=== PATIENT | female | born 1935 | race Caucasian/White ===

== ENCOUNTER 2017-01-07 21:39 | Inpatient (IN) | payer MEDICARE, BC ==
--- NOTE | ~2017-01-07 | HP ---
History And Physical [place] [address] [facility] [place]. [address] NAME: GUANAKITO HAIRSTON : 35 STATUS : ADM IN PAT#: [id number] AGE: 81 ADM/REG DATE : 01/08/17 MR#: [id number] REPORT SERV DATE: 01/08/17 DICTATED BY: CLIVE GUZMAN DATE: 01/08/17 REPORT STATUS : Draft TRANSCRIBED BY: MODL DATE: 01/08/17 DATE OF ADMISSION: 01/08/2017 CARDIOLOGY ADMISSION HISTORY AND PHYSICAL IDENTIFYING DATA: The patient is an 81-year-old woman with no previous cardiovascular history, but with advanced Alzheimer's type dementia. CHIEF COMPLAINT: The patient is brought to [facility] emergency room by her after several hours of apparent substernal chest pain. HISTORY OF PRESENT ILLNESS: Ms. Hairston is a pleasant 81-year-old woman with no previous cardiovascular history. She is a patient of Dr. Clive Joshi. The patient has an advanced Alzheimer's type dementia. The patient's reports that at baseline, the patient is able to eat by herself, but needs assistance with all of her other activities of daily living. She will speak occasionally, but on my interview, the patient is essentially nonverbal. The patient apparently was in her usual state of health until approximately 05:00 p.m. yesterday, 01/07/2017. The patient was preparing to eat dinner, and complained of a substernal chest pain, fell grabbing her chest. The patient's initially felt that this might be indigestion, but realized that the patient did not eat any food. The pain apparently abated transiently, but the patient continued to complain of waxing and waning pain over the next several hours. The patient's finally decided to bring the patient to the emergency room yesterday evening. The patient has no previous cardiovascular history. Her 12-lead EKG demonstrated what appeared to be involving anterolateral myocardial infarction. After discussing the case with Dr. Joshi, the patient has had a previous EKG showing Q-waves in leads V2 through V3 suggestive of a previous anterior KS. These changes have been present going back since before the year 2015. At this time, the patient appears to be comfortable, and is not complaining of any chest pain. She appears mildly tachypneic, but in no acute distress. Again, the patient is nonverbal and unable to describe whether she is experiencing dyspnea or chest discomfort. PAST MEDICAL HISTORY: 1. History of previous breast cancer, status post x-ray therapy and surgical cure. 2. Chronic cellulitis of the chest. 3. Advanced Alzheimer's type dementia. 4. Squamous cell cancer of the face. PAST SURGICAL HISTORY: The patient has had a total abdominal hysterectomy and bilateral salpingo-oophorectomy in the distant past. She has had a modified radical mastectomy. She has had excision of a squamous cell cancer. Surgical history is otherwise noncontributory. FAMILY HISTORY: Noncontributory. History And Physical [address] [address] NAME: GUANAKITO HAIRSTON : 35 STATUS : ADM IN [facility]#: [id number] AGE: 81 ADM/REG DATE : 01/08/17 MR#: [id number] REPORT SERV DATE: 01/08/17 DICTATED BY: CLIVE GUZMAN DATE: 01/08/17 REPORT STATUS : Draft TRANSCRIBED BY: ZINA DATE: 01/08/17 SOCIAL HISTORY: The patient has no significant history of tobacco, alcohol, or drug use. She is . She lives at home with her who is her primary advertising sales representative. ALLERGIES: THE PATIENT APPARENTLY HAS HAD A PREVIOUS ADVERSE REACTION TO LIDOCAINE WITH EPINEPHRINE AT THE DENTIST OFFICE. THE PATIENT'S REPORTS THAT THIS REACTION WAS SIGNIFICANT ENOUGH TO CAUSE GREAT CONCERN IN THAT SHE THEREFORE HAS NOT USED ANY FURTHER LIDOCAINE. THE PATIENT'S DENIES ANY OTHER KNOWN MEDICATION ALLERGIES. HOME MEDICATIONS: 1. Maxitrol ophthalmological ointment, apply quarter-inch ribbon to affected eyes as needed. 2. Lisinopril 20 mg p.o. daily. 3. Toprol-XL 25 mg p.o. twice daily. 4. Penicillin VK 500 mg p.o. q.p.m. with meals. 5. MiraLAX powder 17 g p.o. daily. REVIEW OF SYSTEMS: The patient is unable to provide a meaningful review of systems. PHYSICAL EXAMINATION: VITAL SIGNS: Temperature is 97.4 degrees Fahrenheit, blood pressure is 150/87 mmHg, heart rate is currently 110 beats per minute and regular, respirations 16, oxygen saturation is 95% on a 2 L nasal cannula. CONSTITUTIONAL: The patient is an elderly white woman, who will attempt to follow commands, but is otherwise essentially unresponsive and nonverbal. The patient is mildly tachypneic, but otherwise in no acute distress. EYES: PERRL, EOMI, clear conjunctiva. HEAD/MNT: NCAT with moist mucous membranes and grossly normal hard and soft palate. NECK: Supple with no obvious thyromegaly or lymphadenopathy CARDIOVASCULAR: There is a regular rhythm with a normal S1 and a paradoxically split second heart sound. The jugular venous pressure appears grossly normal at this time. No significant murmurs, rubs, or gallops are noted. PULMONARY: The pulmonary exam is quite limited due to lack of patient effort and patient positioning. Decreased breath sounds are noted in the lung bases bilaterally. There are no overt rales or wheezing noted ABDOMINAL: Soft, nontender, nondistended with no gross hepatosplenomegaly noted. EXTREMITIES: There is 1+ edema below the knees bilaterally. No clubbing or cyanosis is noted. MUSCULOSKELETAL: Grossly normal strength and range of motion in all extremities INTEGUMENTARY: Skin appears intact with no bruises, wounds or active lesions noted NEURO/PSYC: Alert and oriented x3, with no dysarthria, facial droop or lateralizing weakness noted. 12-LEAD EKG: The 12-lead EKG shows sinus rhythm with left axis deviation and Q-waves in leads V1, V2, V3, and poor anterior R-wave progression. There is approximately [address]- segment depression noted in leads 1 and aVL. The tracing is of relatively poor quality, but there also appeared to be Q-waves in leads 2 and aVF. The findings are consistent with History And Physical [address] [place]. [address] NAME: GUANAKITO HAIRSTON : 35 STATUS : ADM IN PAT#: [id number] AGE: 81 ADM/REG DATE : 01/08/17 MR#: [id number] REPORT SERV DATE: 01/08/17 DICTATED BY: CLIVE GUZMAN DATE: 01/08/17 REPORT STATUS : Draft TRANSCRIBED BY: MODL DATE: 01/08/17 anterolateral and inferior myocardial infarction of indeterminate age, most likely involving the LAD. CT SCAN OF THE THORAX: A CT scan of the thorax and abdomen was performed in the emergency room. This is significant for a large hiatal hernia with presence of most of the gastric contents in the left hemothorax. The patient also has eventration of the right hemidiaphragm with the dome of the liver in the right hemithorax. Cardiomegaly is noted. There is no other significant pulmonary disease reported. LABORATORY DATA: [place] [address], hemoglobin 14.1, hematocrit 41, platelets 228. INR is 1.2. PTT is 25. Electrolytes show a sodium of 140, potassium 4.1, chloride is 105, CO2 27, BUN 18, creatinine is 1.07, glucose is 164, magnesium 2.5, total protein 8.6, albumin is 3.4. The patient's initial troponin I is 3.47. ASSESSMENT AND PLAN: 1. Acute myocardial infarction: After discussing the case with Dr. Joshi, it is clear that the patient has had changes suggestive of a previous anterolateral myocardial infarction. As such, this most likely represents a [id number]-GY-[id number] elevation myocardial infarction. However, the patient has not had a previous cardiovascular workup. Given the patient's advanced Alzheimer's type dementia, I have recommended medical management at this time. The patient would not be a candidate for cardiac surgery, though PCI may be possible. However, again given the chronicity of the patient's ECG changes as well as her advanced dementia and the difficulty that would be involved in controlling the patient on the catheterization table as well as her previous serious adverse reactions to lidocaine with epinephrine, I feel the risks of an invasive workup would exceed the potential benefits. The patient will be treated with medical therapy. Her Toprol-XL dose will be increased to 50 mg twice daily if tolerated. The patient will be loaded with Plavix 300 mg p.o. x1, and then continue on 75 mg daily. She will continue aspirin 81 mg daily. We will start atorvastatin 40 mg p.o. at bedtime. A transthoracic echocardiogram will be obtained to evaluate the patient's left ventricular function and exclude the possibility of significant valvular heart disease. We will cycle cardiac biomarkers to determine the size of the acute infarction. 2. Chronic cellulitis: The patient will continue her home dose of penicillin VK. She has apparently been on this for more than twenty years. 3. Hypertension: Should the patient's blood pressure be refractory to lisinopril and metoprolol, we will give hydralazine as needed to maintain systolic blood pressure less than 150 and diastolic blood pressure less than 90. 4. Alzheimer's disease: We will monitor closely for sundowning and delirium. [facility]/ZINA Clive Guzman MD / [id number] History And Physical [address] [address] NAME: GUANAKITO HAIRSTON : 35 STATUS : ADM IN PAT#: [id number] AGE: 81 ADM/REG DATE : 01/08/17 MR#: [id number] REPORT SERV DATE: 01/08/17 DICTATED BY: CLIVE GUZMAN DATE: 01/08/17 REPORT STATUS : Draft TRANSCRIBED BY: ZINA DATE: 01/08/17 CC: Skinny Mcbride M.D.
--- NOTE | ~2017-01-07 | DS ---
Discharge Summary [facility] [address] [place]. [address] NAME: GUANAKITO HAIRSTON : 35 STATUS : DIS IN PAT#: [id number] AGE: 82 ADM/REG DATE : 01/08/17 MR#: [id number] REPORT SERV DATE: 01/23/17 DICTATED BY: CLIVE GUZMAN DATE: 01/22/17 REPORT STATUS : Draft TRANSCRIBED BY: MODJeffrey DATE: 01/22/17 Data Collection from hospitalization DISCHARGE DIAGNOSES: 1. Non-ST elevation myocardial infarction - acute. 2. Acute systolic congestive heart failure. 3. Advanced Alzheimer's type dementia. 4. History of breast cancer. 5. Chronic cellulitis of the chest. 6. History of squamous cell cancer of the face. CONSULTATIONS: None. PROCEDURES PERFORMED: CT scan of the abdomen and pelvis without contrast on 01/07/2017. MEDICATIONS: Aspirin 81 mg daily, Lipitor 40 mg at bedtime, Bumex 1 mg daily, Plavix 75 mg daily, Maxitrol one application daily as needed, Toprol-XL 25 mg twice a day, penicillin VK 500 mg with supper, MiraLAX powder 17 g daily as needed, and K-Dur 20 mEq as instructed. CONDITION AT DISCHARGE: Stable. DISPOSITION: The patient was discharged home on a low-sodium, low-cholesterol, cardiac diet with activities as instructed. She would follow up with Dr. Clive Joshi one week following discharge and with Dr. Clive Guzman two weeks following discharge. HOSPITAL COURSE: This is an 82-year-old female who has no previous cardiovascular history, but does have advanced Alzheimer's type dementia. Her brought her to the [facility] Emergency Room after several hours of apparent substernal chest pain. The patient does need assistance with all of her other activities of daily living aside from being able to eat by herself. She will speak occasionally, but she is essentially nonverbal. She has been in her usual state of health until approximately 5:00 p.m. on the day prior to this admission. The patient was preparing to eat and complained of substernal chest pain and fell grabbing her chest. Her initially felt that this might be indigestion, but realized that she did not eat any food. Apparently, the pain abated transiently, but the patient continued to complain of waxing and waning pain over the next several hours. That evening, the patient's finally decided to bring her to the emergency room. There had been no previous cardiovascular history. Her 12-lead EKG demonstrated what appeared to be involving inferolateral myocardial infarction. After discussing the case with Dr. Joshi, who is her primary care physician, the patient has had a previous EKG that showed Q-waves in leads V2 through V3 suggestive of previous anterior myocardial infarction. These changes had been present going back since before the year 2015. At this time, the patient appeared to be comfortable and was not complaining of chest pain. She appeared mildly tachypneic, but in no acute distress. She was admitted to the hospital at this time for further evaluation and treatment. Upon admission, a CT scan of the thorax and abdomen was performed in the emergency room and this had shown significant large hiatal hernia with presence of most of the gastric contents in the left hemothorax. The patient also had eventration of the right hemidiaphragm with Discharge Summary [address] [address] NAME: GUANAKITO HAIRSTON : 35 STATUS : DIS IN PAT#: [id number] AGE: 82 ADM/REG DATE : 01/08/17 MR#: [id number] REPORT SERV DATE: 01/23/17 DICTATED BY: CLIVE GUZMAN DATE: 01/22/17 REPORT STATUS : Draft TRANSCRIBED BY: ZINA DATE: 01/22/17 the dome of the liver in the right hemithorax. Cardiomegaly was noted. No other significant pulmonary disease was reported. White blood cell count was 10,900. Creatinine was 1.07. Her initial troponin was 3.47. She was felt to have had an acute myocardial infarction. It was felt with this most likely represented a hdx-BB-[id number] elevation myocardial infarction. However, she has not had a previous cardiovascular workup. Medical management was recommended at this time. She would not be a candidate for cardiac surgery, although percutaneous coronary intervention may be possible. Toprol-XL was increased. She would be loaded with Plavix. Aspirin was also continued. We were going to start atorvastatin at bedtime. Transthoracic echocardiogram was requested. We would cycle cardiac biomarkers to determine the size of the acute infarction. Her home dose of penicillin VK would be continued. She apparently had been on this for more than 20 years for chronic cellulitis. She said her blood pressure become refractory to lisinopril and metoprolol. We would give hydralazine as needed to maintain systolic blood pressure less than 150 and diastolic blood pressure less than 90. She was being monitored closely for sundowning and delirium. An echocardiogram was performed. The following day, the patient's said she ate very well that day and seemed almost back to herself. She has an ejection fraction of 15% with dilated left ventricle with global hypocontractility and mild aortic regurgitation. She remained in a sinus rhythm with PACs. Medical management continued. On 01/10/2017, urinalysis was negative for urinary tract infection. Cultures were negative thus far. The patient's code status and goals of care were discussed with her and her daughter. A referral was made to [facility]. Hospice Services and philosophy were discussed. The patient began to breathe easily. She had no apparent chest pain. Aspirin, Plavix, and atorvastatin were continued. The patient did appear euvolemic. Bumex, metoprolol, and lisinopril were continued. The patient's family wanted to take her home and make a decision on hospice care later. On 01/12/2017, she was evaluated by Physical Therapy. Discharge instructions were given. Due to her improved and stable condition, she was discharged home with the above-stated instructions. Information collected by: Sonia Mathew I submit the above information as my discharge summary. TG/MODL Clive Guzman MD / [id number] CC: Skinny Mcbride M.D.
[2017-01-07 23:18] LABS: BASOPHILS 0.1 %; BASOPHILS ABSOLUTE 0.01 10/3/uL (0.0-0.16); EOSINOPHILS 0.2 %; EOSINOPHILS ABSOLUTE 0.02 10/3/uL (0.0-0.53); HEMATOCRIT 40.8 % (36.0-48.0); HEMOGLOBIN 14.1 g/dL (12.0-16.0); IMMATURE GRANULOCYTES 0.2 %; IMMATURE GRANULOCYTES ABSOLUTE 0.02 10/3/uL (0.0-0.11); LYMPHOCYTES 7.8 %; LYMPHOCYTES ABSOLUTE 0.85 10/3/uL (0.67-4.30); MEAN CORPUS HGB CONC 34.6 g/dL (32.0-36.0); MEAN CORPUSCULAR VOLUME 95.6 fL (80-100); MEAN PLATELET VOLUME 9.4 fL (9.2-13.0); MONOCYTES ABSOLUTE 0.43 10/3/uL (0.21-1.20); NEUTROPHILS 87.7 %; NEUTROPHILS ABSOLUTE 9.53 10/3/uL (2.02-8.40); PLATELET COUNT 228 10/3/uL (150-400); RBC DISTRIBUTION WIDTH 13.7 % (12.0-16.0); RED CELL COUNT 4.27 10/6/uL (4.0-5.6); WHITE BLOOD CELLS 10.9 10/3/uL (4.5-10.5)
[2017-01-07 23:19] LABS: ER CBC TAT 0 Hrs 04 MinsNP; MANUAL DIFF NO %
[2017-01-07 23:25] LABS: INTERNATIONAL NORMAL RATI 1.2 UNITS (-); PARTIAL THROMBO TIME 24.6 SEC (22.5-37.2); PROTIME (NOT ORD) 14.8 SEC (12.0-14.5)
[2017-01-07 23:36] LABS: BUN (BLOOD UREA NITROGEN) 18 MG/DL (6-23); CALCIUM, SERUM 9.4 MG/DL (8.5-10.4); CHLORIDE, SERUM 105 MMOL/L (96-112); CO2 (CARBON DIOXIDE) 27 MMOL/L (24-34); CREATININE 1.07 MG/DL (0.55-1.02); GFR AFRICAN AMERICAN 56 ML/MIN (>=60); GFR NON AFRICAN AMERICAN 49 ML/MIN (>=60); POTASSIUM, SERUM 4.1 MMOL/L (3.5-5.3); SODIUM, SERUM 140 MMOL/L (135-148)
[2017-01-07 23:38] LABS: CHEST PAIN PROFILE TAT 0 Hrs 24 Mins; GLUCOSE, SERUM 164 MG/DL (60-99); TROPONIN I 3.47 NG/ML (<0.05)
[2017-01-07 23:52] LABS: ALBUMIN 3.4 G/DL (3.5-5.0); ALKALINE PHOSPHATASE 79 U/L (45-117); DIRECT BILIRUBIN 0.2 MG/DL (0.0-0.4); INDIRECT BILIRUBIN(NOT ORDER) 0.7 MG/DL (0.1-0.9); SGOT(AST) 23 U/L (5-40); SGPT(ALT) 13 U/L (5-65); TOTAL BILIRUBIN 0.9 MG/DL (0-1.2); TOTAL PROTEIN 8.6 G/DL (6.0-8.5)
[2017-01-08] MEDS ORDERED: PENICILLN VK500 MG PO (02:57)
[2017-01-08] MEDS ORDERED: TOPXL25 PO (02:58)
[2017-01-08] MEDS ORDERED: PRIN20 PO (02:58)
[2017-01-08] MEDS ORDERED: MAXITOINT OPH (02:59)
[2017-01-08] MEDS ORDERED: MIRALAX POWDER1 PKT PO (02:59)
[2017-01-08 09:38] LABS: BASOPHILS 0.1 %; BASOPHILS ABSOLUTE 0.01 10/3/uL (0.0-0.16); EOSINOPHILS 0 %; HEMATOCRIT 38.9 % (36.0-48.0); IMMATURE GRANULOCYTES 0.4 %; IMMATURE GRANULOCYTES ABSOLUTE 0.03 10/3/uL (0.0-0.11); LYMPHOCYTES 8.7 %; LYMPHOCYTES ABSOLUTE 0.74 10/3/uL (0.67-4.30); MANUAL DIFF NO %; MEAN CORPUS HGB CONC 33.4 g/dL (32.0-36.0); MEAN CORPUSCULAR HEMOGLOB 32.4 pg (26.0-34.0); MEAN PLATELET VOLUME 9.4 fL (9.2-13.0); MONOCYTES 6.9 %; MONOCYTES ABSOLUTE 0.59 10/3/uL (0.21-1.20); NEUTROPHILS 83.9 %; NEUTROPHILS ABSOLUTE 7.18 10/3/uL (2.02-8.40); PLATELET COUNT 176 10/3/uL (150-400); RED CELL COUNT 4.01 10/6/uL (4.0-5.6); WHITE BLOOD CELLS 8.6 10/3/uL (4.5-10.5)
[2017-01-08 09:47] LABS: INTERNATIONAL NORMAL RATI 1.3 UNITS (-)
[2017-01-08 09:48] LABS: PARTIAL THROMBO TIME 60.2 SEC (22.5-37.2)
[2017-01-08 11:18] LABS: CK-MB 45.5 NG/ML; CKMB INDEX (NOT ORD) 11.6; FREE T4 1.33 NG/DL (0.76-1.46); TROPONIN I 9.46 NG/ML (<0.05)
[2017-01-08 11:19] LABS: ULTRASENSITIVE TSH 0.667 MCIU/ML (0.358-3.740)
[2017-01-08 18:00] LABS: CK-MB 39.9 NG/ML; CKMB INDEX (NOT ORD) 8.8; TROPONIN I 13.7 NG/ML (<0.05)
[2017-01-09 01:44] LABS: BASOPHILS 0.1 %; BASOPHILS ABSOLUTE 0.01 10/3/uL (0.0-0.16); EOSINOPHILS 0 %; HEMATOCRIT 36.1 % (36.0-48.0); HEMOGLOBIN 12.1 g/dL (12.0-16.0); IMMATURE GRANULOCYTES 0.3 %; IMMATURE GRANULOCYTES ABSOLUTE 0.03 10/3/uL (0.0-0.11); LYMPHOCYTES 8.8 %; LYMPHOCYTES ABSOLUTE 0.81 10/3/uL (0.67-4.30); MEAN CORPUS HGB CONC 33.5 g/dL (32.0-36.0); MEAN CORPUSCULAR HEMOGLOB 32.1 pg (26.0-34.0); MEAN CORPUSCULAR VOLUME 95.8 fL (80-100); MEAN PLATELET VOLUME 9.6 fL (9.2-13.0); MONOCYTES ABSOLUTE 0.65 10/3/uL (0.21-1.20); NEUTROPHILS 83.8 %; NEUTROPHILS ABSOLUTE 7.74 10/3/uL (2.02-8.40); PLATELET COUNT 186 10/3/uL (150-400); RBC DISTRIBUTION WIDTH 14.2 % (12.0-16.0); RED CELL COUNT 3.77 10/6/uL (4.0-5.6); WHITE BLOOD CELLS 9.2 10/3/uL (4.5-10.5)
[2017-01-09 01:46] LABS: MANUAL DIFF NO %
[2017-01-09 02:04] LABS: CALCIUM, SERUM 8.5 MG/DL (8.5-10.4); CHLORIDE, SERUM 109 MMOL/L (96-112); CK-MB 20.8 NG/ML; CO2 (CARBON DIOXIDE) 25 MMOL/L (24-34); CPK 482 U/L (0-200); GFR AFRICAN AMERICAN 69 ML/MIN (>=60); GFR NON AFRICAN AMERICAN 60 ML/MIN (>=60); GLUCOSE, SERUM 136 MG/DL (60-99); SODIUM, SERUM 143 MMOL/L (135-148)
[2017-01-09 02:05] LABS: BUN (BLOOD UREA NITROGEN) 22 MG/DL (6-23); CKMB INDEX (NOT ORD) 4.3
[2017-01-09 09:37] LABS: INTERNATIONAL NORMAL RATI 1.3 UNITS (-); PROTIME (NOT ORD) 16.1 SEC (12.0-14.5)
[2017-01-09 09:49] LABS: CHOL/HDL RATIO(NOT ORDER) 2.5 (0-5)
[2017-01-09 11:12] LABS: PARTIAL THROMBO TIME 54.2 SEC (22.5-37.2)
[2017-01-09 21:42] LABS: ASCORBIC ACID (UR NOT ORDER) NEG (NEG); BILIRUBIN, URINE NEGATIVE (NEG); KETONE, URINE NEGATIVE (NEG); LEUKOCYTE ESTERASE(NOT OR NEG (NEG); WBC (NOT ORDERED) (RFLEX) < 1 (0-5)
[2017-01-10 01:59] LABS: HEMATOCRIT 36.6 % (36.0-48.0); HEMOGLOBIN 12.2 g/dL (12.0-16.0); MEAN CORPUS HGB CONC 33.3 g/dL (32.0-36.0); MEAN CORPUSCULAR HEMOGLOB 32.5 pg (26.0-34.0); MEAN CORPUSCULAR VOLUME 97.6 fL (80-100); MEAN PLATELET VOLUME 9.9 fL (9.2-13.0); PLATELET COUNT 183 10/3/uL (150-400); RBC DISTRIBUTION WIDTH 14.5 % (12.0-16.0); RED CELL COUNT 3.75 10/6/uL (4.0-5.6); WHITE BLOOD CELLS 9.9 10/3/uL (4.5-10.5)
[2017-01-10 02:01] LABS: MANUAL DIFF YES %
[2017-01-10 02:17] LABS: BUN (BLOOD UREA NITROGEN) 33 MG/DL (6-23); CALCIUM, SERUM 8.4 MG/DL (8.5-10.4); CHLORIDE, SERUM 106 MMOL/L (96-112); CO2 (CARBON DIOXIDE) 27 MMOL/L (24-34); CREATININE 1.24 MG/DL (0.55-1.02); GFR AFRICAN AMERICAN 47 ML/MIN (>=60); GFR NON AFRICAN AMERICAN 40 ML/MIN (>=60); GLUCOSE, SERUM 137 MG/DL (60-99); POTASSIUM, SERUM 4.1 MMOL/L (3.5-5.3); SODIUM, SERUM 142 MMOL/L (135-148)
[2017-01-10 02:20] LABS: BAND NEUTROPHILS 5 %; LYMPHOCYTES 5 %; MONOCYTES 1 %; NEUTROPHILS ABSOLUTE (CALC) 9.31 10/3/uL (2.02-8.40); PLATELET ESTIMATE ADQ (ADEQUATE); RBC MORPHOLOGY NORM (NORMAL); SEGMENTED NEUTROPHIL (0) 89 %; TOTAL NUCLEATED CELLS 100
[2017-01-11 07:22] LABS: BASOPHILS 0.2 %; BASOPHILS ABSOLUTE 0.01 10/3/uL (0.0-0.16); EOSINOPHILS 1.9 %; EOSINOPHILS ABSOLUTE 0.12 10/3/uL (0.0-0.53); HEMATOCRIT 35.5 % (36.0-48.0); HEMOGLOBIN 11.9 g/dL (12.0-16.0); IMMATURE GRANULOCYTES 0.2 %; IMMATURE GRANULOCYTES ABSOLUTE 0.01 10/3/uL (0.0-0.11); LYMPHOCYTES 15.6 %; LYMPHOCYTES ABSOLUTE 1.01 10/3/uL (0.67-4.30); MEAN CORPUS HGB CONC 33.5 g/dL (32.0-36.0); MEAN CORPUSCULAR HEMOGLOB 32.3 pg (26.0-34.0); MEAN CORPUSCULAR VOLUME 96.5 fL (80-100); MEAN PLATELET VOLUME 10.2 fL (9.2-13.0); MONOCYTES 9.1 %; MONOCYTES ABSOLUTE 0.59 10/3/uL (0.21-1.20); NEUTROPHILS ABSOLUTE 4.73 10/3/uL (2.02-8.40); PLATELET COUNT 190 10/3/uL (150-400); RBC DISTRIBUTION WIDTH 14.3 % (12.0-16.0); RED CELL COUNT 3.68 10/6/uL (4.0-5.6); WHITE BLOOD CELLS 6.5 10/3/uL (4.5-10.5)
[2017-01-11 07:26] LABS: MANUAL DIFF NO %
[2017-01-11 08:58] LABS: CALCIUM, SERUM 8.1 MG/DL (8.5-10.4); CHLORIDE, SERUM 108 MMOL/L (96-112); CO2 (CARBON DIOXIDE) 28 MMOL/L (24-34); CREATININE 0.97 MG/DL (0.55-1.02); GFR AFRICAN AMERICAN 63 ML/MIN (>=60); GFR NON AFRICAN AMERICAN 54 ML/MIN (>=60); SODIUM, SERUM 143 MMOL/L (135-148)
[2017-01-11 08:59] LABS: BUN (BLOOD UREA NITROGEN) 37 MG/DL (6-23); GLUCOSE, SERUM 104 MG/DL (60-99)
[2017-01-11 11:45] LABS: BUN (BLOOD UREA NITROGEN) 35 MG/DL (6-23); CALCIUM, SERUM 8.5 MG/DL (8.5-10.4); CHLORIDE, SERUM 107 MMOL/L (96-112); CO2 (CARBON DIOXIDE) 28 MMOL/L (24-34); CREATININE 0.95 MG/DL (0.55-1.02); GFR AFRICAN AMERICAN 65 ML/MIN (>=60); GFR NON AFRICAN AMERICAN 56 ML/MIN (>=60); GLUCOSE, SERUM 134 MG/DL (60-99); POTASSIUM, SERUM 3.2 MMOL/L (3.5-5.3); SODIUM, SERUM 145 MMOL/L (135-148)
[2017-01-12 05:00] LABS: BUN (BLOOD UREA NITROGEN) 34 MG/DL (6-23); CALCIUM, SERUM 8.5 MG/DL (8.5-10.4); CHLORIDE, SERUM 112 MMOL/L (96-112); CO2 (CARBON DIOXIDE) 26 MMOL/L (24-34); CREATININE 0.95 MG/DL (0.55-1.02); GFR AFRICAN AMERICAN 65 ML/MIN (>=60); GFR NON AFRICAN AMERICAN 56 ML/MIN (>=60); GLUCOSE, SERUM 114 MG/DL (60-99); SODIUM, SERUM 147 MMOL/L (135-148)
[2017-01-12] MEDS ORDERED: ASAB PO (15:12)
[2017-01-12] MEDS ORDERED: LIPITOR40 PO ×2 (15:13→15:15)
[2017-01-12] MEDS ORDERED: BUM1 PO (15:16)
[2017-01-12] MEDS ORDERED: PLAVIX PO (15:16)
[2017-01-12] MEDS ORDERED: KDUR20 PO (15:17)
== END 2017-01-12 18:28 | disposition home or self-care (01) | DRG 280 ==
LOC: ER 21:39 → 6NO 01-08 01:55
PROVIDERS: Emergency Medicine; Internal Medicine Cardiovascular Disease; Nurse Practitioner Family
DX: I21.4 Non-ST elevation (NSTEMI) myocardial infarction (principal); I50.21 Acute systolic (congestive) heart failure; N17.9 Acute kidney failure, unspecified; L03.90 Cellulitis, unspecified; G30.9 Alzheimer's disease, unspecified; F02.80 Dementia in other diseases classified elsewhere, unspecified severity, without behavioral disturbance, psychotic disturbance, mood disturbance, and anxiety; I25.2 Old myocardial infarction; I11.0 Hypertensive heart disease with heart failure; I25.5 Ischemic cardiomyopathy; Z85.3 Personal history of malignant neoplasm of breast; Z90.710 Acquired absence of both cervix and uterus; Z90.10 Acquired absence of unspecified breast and nipple; Z88.4 Allergy status to anesthetic agent; Z79.2 Long term (current) use of antibiotics
CPT/HCPCS: 71010; 74176; 80048; 80061; 80076; 81001; 82550; 82553; 83690; 83735; 83880; 84132; 84439; 84443; 84460; 84484; 85025; 85610; 85730; 87040; 93005; 96374; 97163-GP; 99285; A9270-GY; C8929; G8978-CM-GP; G8980-CM-GP; J2405; Q9957